=== PATIENT | male | born 1960 | race Caucasian/White ===

== ENCOUNTER 2024-09-03 10:32 | Outpatient (CLI) | payer BC | END 2024-09-03 19:54 | disposition home or self-care (01) | LOC: SCT 10:32 | PROVIDERS: ATTEND Orthopaedic Surgery Sports Medicine | DX: M17.11 Unilateral primary osteoarthritis, right knee (principal) ==

== ENCOUNTER 2024-09-09 07:12 | Day surgery (SDC) | payer BC ==
[2024-09-02 12:05] LABS: BASOPHILS % (AUTO) 0.4 % (0.0-2.0); EOSINOPHILS # (AUTO) 0.1 K/uL (0.0-0.4); EOSINOPHILS % (AUTO) 0.7 % (0.0-4.0); HEMOGLOBIN 15.6 g/dL (14.0-18.0); LYMPHOCYTES # (AUTO) 2.1 K/uL (1.0-5.5); LYMPHOCYTES % (AUTO) 27.6 % (20.5-51.5); MEAN CORPUSCULAR HEMOGLOBIN 32 pg (27-31); MEAN CORPUSCULAR HGB CONC 34 % (32-36); MEAN CORPUSCULAR VOLUME 94 fL (79.0-98.0); MONOCYTES # (AUTO) 0.6 K/uL (0.0-1.0); MONOCYTES % (AUTO) 7.5 % (1.7-9.3); NEUTROPHILS # (AUTO) 4.8 K/uL (1.8-7.7); NEUTROPHILS % (AUTO) 63.8 % (40.0-70.0); PLATELET COUNT (AUTO) 220 K/uL (130-430); RED BLOOD CELL COUNT(AUTO) 4.89 MIL/uL (4.2-6.2); RED CELL DISTRIBUTION WIDTH 14.4 % (9.0-15.0); WHITE BLOOD COUNT (AUTO) 7.6 K/uL (4.8-10.8)
[2024-09-02 12:35] LABS: PROTHROMBIN TIME 10.3 SECS (9.5-12.5)
[2024-09-02 12:36] LABS: ALBUMIN 3.7 g/dL (3.4-4.8); CALCIUM 9.3 mg/dL (8.4-11.0); CREATININE 0.93 mg/dL (0.55-1.30); POTASSIUM 4.5 mmol/L (3.5-5.1); TOTAL BILIRUBIN 0.3 mg/dL (0.0-1.0); TOTAL PROTEIN, SERUM 7.5 g/dL (6.4-8.3)
[2024-09-02 13:18] LABS: HEMOGLOBIN A1C 5.49 % (<5.7)
[~2024-09-09] VITALS: Ht 172.7 cm; Wt 122.9 kg
[2024-09-09] MEDS: GABAPENTIN 300 MG CAPSULE PO ONE (07:00)
[2024-09-09] MEDS: oxyCODONE HCL 10 MG TAB.ER.12H PO ONE ×2 (07:00→07:34)
[2024-09-09] MEDS: ACETAMINOPHEN 500 MG TABLET ONE (07:32)
[2024-09-09] MEDS: GABAPENTIN 300 MG CAPSULE ONE (07:34)
[2024-09-09] MEDS: ACETAMINOPHEN 500 MG TABLET PO ONE ×2 (07:40→13:00)
[2024-09-09] MEDS: CEFAZOLIN SOD 2 GM in D5W 50 ML IV ONE (08:00)
[2024-09-09] MEDS: PROPOFOL DRIP 100 ML IV ONE (09:35)
[2024-09-09] MEDS ORDERED: NS IRRIG SOLN 1000 ML IR ONE (09:41)
[2024-09-09] MEDS ORDERED: PROPOFOL 200MG/ 20ML VIAL (DIPRIVAN) IV ONE (09:41)
[2024-09-09] MEDS ORDERED: EPINEPHrine HCL 1 MG/ML VIAL ONE (09:41)
[2024-09-09] MEDS ORDERED: LR 1,000 ML IV.SOLN IV ONE (09:41)
[2024-09-09] MEDS ORDERED: BUPIVACAINE /PF 0.25% 10 ML VIAL INJ ONE (09:41)
[2024-09-09] MEDS ORDERED: NS 1000 ML IV.SOLN IV ONE (09:41)
[2024-09-09] MEDS ORDERED: TRANEXAMIC ACID 1,000 MG/10 ML VIAL ONE (09:41)
[2024-09-09] MEDS ORDERED: VANCOMYCIN HCL 1000 MG/VIAL IV ONE (09:41)
[2024-09-09] MEDS: MIDAZOLAM HCL 5 MG/5 ML VIAL ONE (09:52)
[2024-09-09] MEDS ORDERED: hydrALAZINE HCL 20 MG/ML VIAL IV PRN (10:45)
[2024-09-09] MEDS ORDERED: NALOXONE HCL 0.4 MG/ML AMP (NARCAN) IVP PRN (10:45)
[2024-09-09] MEDS ORDERED: ONDANSETRON HCL 4 MG/2 ML VIAL IVP PRN ×2 (10:45→11:45)
[2024-09-09] MEDS ORDERED: HYDROmorphone 1 MG/ML INJ. CARTRIDGE IVP PRN ×5 (10:45→14:45)
[2024-09-09] MEDS ORDERED: LORATADINE 10 MG TABLET PO PRN (11:00)
[2024-09-09] MEDS ORDERED: traMADol HCL HCL 50 MG TABLET (ULTRAM) PO PRN (11:00)
[2024-09-09] MEDS ORDERED: LACTULOSE 20 GM/30 ML UDC PO PRN (12:30)
[2024-09-09] MEDS ORDERED: BISACODYL 10 MG/SUPPOSITORY RC PRN (12:30)
[2024-09-09] MEDS: HYDROmorphone 1 MG/ML INJ. CARTRIDGE IVP PRN ×2 (13:00→23:19)
[2024-09-09] MEDS: HYDROmorphone 1 MG/ML INJ. CARTRIDGE ONE ×3 (13:01→15:12)
[2024-09-09] MEDS: TAMSULOSIN HCL 0.4 MG CAP PO ONE (14:00)
[2024-09-09] MEDS: SENNOSIDES/DOCUSATE SODIUM 1 TAB TABLET(SENOKOT-S) PO ONE (14:00)
[2024-09-09] MEDS ORDERED: TAMS-11 PO (15:48)
[2024-09-09 15:49] VITALS: BP_SYST 143; PULSE 77; RESP 18; TEMP 97.9
[2024-09-09] MEDS ORDERED: LAM100 PO (15:51)
[2024-09-09] MEDS ORDERED: QUET200T5 PO (15:51)
[2024-09-09] MEDS ORDERED: QUET200T PO (15:51)
[2024-09-09] MEDS ORDERED: OXCA150T5 PO (15:52)
[2024-09-09] MEDS ORDERED: CLON-845 PO (15:53)
[2024-09-09] MEDS ORDERED: MELA10CA PO (16:09)
[2024-09-09] MEDS ORDERED: ACET-73 PO (16:09)
[2024-09-09] MEDS ORDERED: VITD2000 PO (16:09)
[2024-09-09 16:15] VITALS: BP_SYST 143; PULSE 77; RESP 18; TEMP 97.9; O2SAT 94
[2024-09-09] MEDS: oxyCODONE HCL 5 MG TABLET PO PRN (16:58)
[2024-09-09] MEDS: CEFEPIME 2 GM in D5W 100 ML IV SCH (17:43)
[2024-09-09] MEDS: KETOROLAC TROMETHAMINE 10 MG TABLET (TORADOL) PO SCH (17:47)
[2024-09-09] MEDS: LORazepam 2 MG/ML VIAL IVP PRN (19:50)
[2024-09-09 20:00] VITALS: BP_SYST 144; PULSE 89; RESP 18; TEMP 97.3; O2SAT 93
[2024-09-09] MEDS: ACETAMINOPHEN 500 MG TABLET PO SCH (21:57)
[2024-09-10] VITALS (8 sets, daily range): BP systolic 121–139; PULSE 87–119; RESP 18–20; TEMP 97.1–98.8; O2SAT 92–94
[2024-09-10] MEDS: TAMSULOSIN HCL 0.4 MG CAP PO SCH (08:05)
[2024-09-10] MEDS: LamoTRIgine 100 MG TABLET PO SCH (08:06)
[2024-09-10] MEDS: OXcarbazepine 150 MG TABLET(TRILEPTAL) PO SCH (08:06)
[2024-09-10] MEDS: SENNOSIDES/DOCUSATE SODIUM 1 TAB TABLET(SENOKOT-S) PO SCH (08:06)
[2024-09-10] MEDS ORDERED: QUEtiapine FUMARATE 100 MG TABLET PO SCH (09:00)
[2024-09-10] MEDS: CELECOXIB 200 MG CAPSULE PO SCH (11:07)
[2024-09-10] MEDS: clonazePAM 0.5 MG TABLET PO SCH (11:11)
[2024-09-10] MEDS: QUEtiapine FUMARATE 100 MG TABLET PO SCH ×2 (14:46→21:57)
[2024-09-11] VITALS: BP_SYST 124; PULSE 111; RESP 18; TEMP 97.4; O2SAT 92
[2024-09-11 08:00] VITALS: O2SAT 95
[2024-09-11 08:20] VITALS: BP_SYST 131; PULSE 98; RESP 18; TEMP 97.8; O2SAT 93
[2024-09-11] MEDS: QUEtiapine FUMARATE 200 MG TAB.SR.24H PO SCH (08:44)
[2024-09-11 12:44] VITALS: BP_SYST 128; PULSE 101; RESP 17; TEMP 97.6; O2SAT 97
[2024-09-11] MEDS: oxyCODONE HCL 5 MG TABLET PO PRN (13:58)
[2024-09-11 15:51] VITALS: BP_SYST 106; PULSE 90; RESP 20; TEMP 98; O2SAT 95
[2024-09-11 16:43] VITALS: BP_SYST 132; PULSE 99; RESP 18; TEMP 97.7; O2SAT 95
== END 2024-09-11 18:45 | disposition home or self-care (01) ==
LOC: SDS 07:12 → EEVIPCON 07:12 → SMU 07:16 → SDS 09-11 18:45
PROVIDERS: ATTEND Orthopaedic Surgery Sports Medicine
DX: M17.11 Unilateral primary osteoarthritis, right knee (principal); M25.761 Osteophyte, right knee; M25.561 Pain in right knee; G89.29 Other chronic pain; I10 Essential (primary) hypertension; E66.01 Morbid (severe) obesity due to excess calories; K21.9 Gastro-esophageal reflux disease without esophagitis; J98.11 Atelectasis; F20.9 Schizophrenia, unspecified; F41.9 Anxiety disorder, unspecified; G47.33 Obstructive sleep apnea (adult) (pediatric); Z68.41 Body mass index [BMI] 40.0-44.9, adult; Z98.49 Cataract extraction status, unspecified eye; Z88.8 Allergy status to other drugs, medicaments and biological substances; Z79.899 Other long term (current) drug therapy
CPT/HCPCS: 80053; 83037; 85025; 85610; 85730; 87081; 36415; 71046; 27447; 64447; 73560; 88305; 88311; 97162; 97110; 97530 ×2; 97116 ×2; 96379; J3490 ×2; J0690; J0171; J2060 ×3; J2250; J2704 ×2; J3370; J1171 ×2; J7060 ×4; J7120; J7030; C1776 ×3; J0692